=== PATIENT | female | born 1960 | race Caucasian/White ===

== ENCOUNTER → 2020-11-25 | Outpatient (CLI) | payer BC | LOC: CT 08:29 | DX: M34.9 Systemic sclerosis, unspecified (principal); R94.5 Abnormal results of liver function studies; K22.8 Other specified diseases of esophagus; R91.8 Other nonspecific abnormal finding of lung field | CPT/HCPCS: ECHO; 71250; 76700; 93306 ==

== ENCOUNTER → 2020-11-30 | Outpatient (CLI) | payer BC | LOC: EXRD 10:30 | DX: M81.0 Age-related osteoporosis without current pathological fracture (principal); M34.9 Systemic sclerosis, unspecified; M85.862 Other specified disorders of bone density and structure, left lower leg | CPT/HCPCS: 77080; 94010 ==

== ENCOUNTER → 2021-01-05 | Outpatient (CLI) | payer BC ==
[~2021-01-05] VITALS: Ht 167.6 cm; Wt 72.6 kg
== END ==
LOC: OPSV 12:27
DX: M81.0 Age-related osteoporosis without current pathological fracture (principal)
CPT/HCPCS: 96360; 96365; J3489; J7030

== ENCOUNTER → 2021-02-20 | Outpatient (CLI) | payer BC | LOC: RAD 09:34 | DX: K80.10 Calculus of gallbladder with chronic cholecystitis without obstruction (principal) | CPT/HCPCS: Q9967 ==